=== PATIENT | male | born 1995 | race Caucasian/White ===

== ENCOUNTER 2020-02-26 17:15 | Emergency (ER) | payer BC, OTHER ==
--- NOTE | 2020-02-26 18:09 | UC ---
Cardiac HPI - HPI Summary HPI Summary: The patient is a 24-year-old male who for the past 1-1/2-2 weeks his had chest tightness and shortness of breath and dyspepsia. He has been tested twice for Covid 19 and both tests were negative. He denies any fever or chills. He denies any vomiting. He is a smoker but has stopped during this illness. He occasionally takes ibuprofen. He has not had any bloody or tarry stools. His symptoms are worse when he is laying on his back. - History of Current Complaint Chief Complaint: UCGeneralIllness Stated Complaint: CHEST TIGHTNESS Time Seen by Provider: 02/26/20 17:38 Hx Obtained From: Patient Timing: Constant Initial Severity: Mild Current Severity: Mild Pain Intensity: 4 Chest Pain Location: Mid Sternal Character: Dull/Aching, Burning Aggravating Factor(s): Position Alleviating Factor(s): Nothing Associated Signs & Symptoms: Positive: Chest Pain, Anxiety, Recent Stress - pandemic, SOB. Negative: Vision Changes, Headaches, Numbness, Tingling, Weakness, Dizziness, Swelling, Syncope, Fever, Diaphoresis, Nausea/Vomiting, Palpitations, Cough, Hemoptysis, Back Pain, Abdominal Pain, Calf Pain/Swelling - Allergy/Home Medications Allergies/Adverse Reactions: Allergies Allergy/AdvReac Type Severity Reaction Status Date / Time No Known Allergies Allergy Verified 02/26/20 17:35 Home Medications: Home Medications Venlafaxine HCl [Venlafaxine HCl ER] 37.5 mg PO DAILY 02/15/20 [History Confirmed 02/26/20] hydrOXYzine HCL TAB* [Atarax 25 MG TAB*] 25 mg PO BID 02/15/20 [History Confirmed 02/15/20] Omeprazole CAP (NF) [Prilosec CAP* 20 MG] 20 mg PO DAILY #14 02/26/20 [Rx ] PMH/Surg Hx/FS Hx/Imm Hx Previously Healthy: Yes Other History Of: Negative For: Anticoagulant Therapy - Surgical History Surgical History: None - Family History Known Family History: Positive: Hypertension - Social History Alcohol Use: Occasionally Substance Use Type: None Smoking Status (MU): Current Every Day Smoker Review of Systems All Other Systems Reviewed And Are Negative: Yes Constitutional: Positive: Negative Skin: Positive: Negative Eyes: Positive: Negative ENT: Positive: Negative Respiratory: Positive: Shortness Of Breath Cardiovascular: Positive: Chest Pain, Other - dyspepsia Gastrointestinal: Positive: Negative Genitourinary: Positive: Negative Motor: Positive: Negative Neurovascular: Positive: Decreased Sensation Musculoskeletal: Positive: Negative Neurological/Mental Status: Positive: Negative Psychological: Positive: Negative Physical Exam Triage Information Reviewed: Yes Appearance: Well-Appearing, No Pain Distress, Well-Nourished Vital Signs Reviewed: Yes Eyes: Positive: Conjunctiva Clear ENT: Positive: Hearing grossly normal. Negative: Nasal congestion, Nasal drainage, Tonsillar swelling, Tonsillar exudate, Hoarse voice Neck exam: Normal Neck: Positive: Supple, Nontender, No Lymphadenopathy Respiratory: Positive: Lungs clear, Normal breath sounds, No respiratory distress, No accessory muscle use Cardiovascular: Positive: RRR, No Murmur Abdominal Exam: Normal Abdomen Description: Positive: Nontender, No Organomegaly, Soft Bowel Sounds: Positive: Present Musculoskeletal: Positive: ROM Intact, No Edema Neurological: Positive: Alert Psychological Exam: Normal Skin Exam: Normal - Clinical Impression Provider Diagnosis: GERD (gastroesophageal reflux disease) Discharge ED - Sign-Out/Discharge Documenting (check all that apply): Patient Departure All imaging exams completed and their final reports reviewed: No Studies - Discharge Plan Condition: Stable Disposition: HOME Prescriptions: Omeprazole CAP (NF) [Prilosec CAP* 20 MG] 20 mg PO DAILY #14 Patient Education Materials: Gastroesophageal Reflux Disease (ED) Referrals: [facility] [place] [facility] [Outside] - 2 Weeks Additional Instructions: I suspect your symptoms are due to the heart burn you have been having recheck for new or worsening symptoms or if not improved in the next 4-5 days - Billing Disposition and Condition Condition: STABLE Disposition: Home
[2020-02-26 18:10] VITALS: BP 141/83
== END 2020-02-26 18:23 | disposition home or self-care (01) ==
LOC: UCEAST 17:15
DX: K21.9 Gastro-esophageal reflux disease without esophagitis (principal); R07.89 Other chest pain; R06.02 Shortness of breath; F17.200 Nicotine dependence, unspecified, uncomplicated
CPT/HCPCS: 99212; G0463